=== PATIENT | male | born 1935 | race Caucasian/White ===

== ENCOUNTER 2019-09-28 12:22 | Outpatient (CLI) | payer OTHER, SELFPAY ==
--- NOTE | ~2019-09-28 | XR_ITS ---
EXAMINATION: XR chest 2V EXAM DATE: 09/28/2019 12:46 INDICATION: Short of breath and COPD. TECHNIQUE: Frontal and lateral projections of the chest obtained and reviewed. Comparison is made to prior examination from 07/19/2014. FINDINGS: Some linear left basilar scarring or atelectasis. The lungs are otherwise clear. There ar e no pleural effusions. The cardiomediastinal silhouette is within normal limits. There is no pneum othorax suspected. The bones and soft tissues are unremarkable. IMPRESSION: Linear left basilar subsegmental scarring or atelectasis. Reviewed, dictated and finalized at location B.
== END 2019-09-28 12:23 | disposition home or self-care (01) ==
PROVIDERS: PCP Family Medicine; Visit Provider Physician Assistant
DX: R06.02 Shortness of breath (principal); R09.89 Other specified symptoms and signs involving the circulatory and respiratory systems; R91.8 Other nonspecific abnormal finding of lung field
CPT/HCPCS: 71046

== ENCOUNTER 2020-01-17 11:39 | Emergency (ER) | payer OTHER, SELFPAY ==
--- NOTE | ~2020-01-17 | XR_ITS ---
XR hand LT min 3V 01/17/2020 12:39 Indication: Left hand pain after fall Procedure: 3 views left hand Comparison: No prior studies for comparison. 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 Osteopenia. No acute fracture or traumatic malalignment. No focal soft tissue abnormality. No radiopaque foreign bodies. Impression: 1: No acute fracture. Reviewed, dictated and finalized at location A. Impression: 1: No acute fracture.
--- NOTE | ~2020-01-17 | CT_ITS ---
EXAMINATION: CT cervical spine wo con DATE: 01/17/2020 13:11 INDICATION: Status post fall. Neck pain. TECHNIQUE: Computed tomography (CT) of the cervical spine was performed without intravenous contrast. The dose-length product was 590 mGy-cm. Automated exposure control and iterative reconstruction tech nique were employed. COMPARISON: None FINDINGS: There is reversal of cervical lordosis. There is degenerative anterolisthesis at C3-4 and C 4-5 with retrolisthesis at C5-6 and C6-7. There is complete loss of disc space at C5-6 and C6-7. Ther e is advanced multilevel facet hypertrophy. No evidence for perched facet. Odontoid process within no rmal limits. There is atherosclerosis of the carotid arteries. IMPRESSION: 1. No acute abnormality of the cervical spine. 2: Severe cervical spondylosis Reviewed, dictated and finalized at location A.
--- NOTE | ~2020-01-17 | CT_ITS ---
EXAMINATION: CT brain wo con DATE: 01/17/2020 13:11 INDICATION: Status post fall. Head injury TECHNIQUE: Computed tomography (CT) of the head was performed without intravenous contrast. The dose- length product was 605.33 mGy-cm. The mA was adjusted according to patient size. Iterative reconstruc tion technique was employed. COMPARISON: None FINDINGS: Generalized atrophy. There are scattered moderate periventricular and subcortical white mat ter changes, most likely related to small vessel ischemic disease (microangiopathy). There is intracr anial atherosclerosis. No ventriculomegaly or midline shift. Basilar cisterns are patent. No acute in tracranial hemorrhage, infarction, mass or mass effect. There is mucosal thickening of the ethmoid an d sphenoid sinuses. Small left mastoid effusion. No depressed skull fractures. IMPRESSION: 1. No acute intracranial abnormality. 2: Sinusitis. 3: Chronic age-related findings. Reviewed, dictated and finalized at location A.
--- NOTE | ~2020-01-17 | XR_ITS ---
XR wrist RT min 3V 01/17/2020 12:39 Indication: Right wrist pain after fall Procedure: 4 views right wrist Comparison: No prior studies for comparison. Findings: No acute fracture or traumatic malalignment. Moderate polyarticular osteoarthritis. Osteope emi. No focal soft tissue abnormality. There are vascular calcifications. Impression: 1: No acute fracture. Reviewed, dictated and finalized at location A. Impression: 1: No acute fracture.
[2020-01-17 11:49] VITALS: BP 135/55; PULSE 76; RESP 20; TEMP 36.6; O2SAT 98
--- NOTE | 2020-01-17 12:30 | ED.FALL ---
HPI - Fall General Chief Complaint: Fall Stated Complaint: Fall Time Seen by Provider: 01/17/20 12:02 Source: patient and family Mode of arrival: EMS Limitations: no limitations History of Present Illness HPI Narrative: This is an 84-year-old male that presents to the emergency department via EMS after a fall today. Reports he tripped and fell forward down a couple of stairs. He reports some bruising to the right wrist and left hand. He denies any current pain. He is on a blood thinner so wanted to come be checked out. Denies prodromal symptoms, hitting his head, loss of consciousness, chest pain, shortness of breath, vision changes, vomiting, weakness, or numbness. Related Data Home Medications Medication Instructions Recorded Confirmed albuterol sulfate 90 mcg/actuation 1 inhalation INHALATION Q4H 05/08/19 12/11/19 aerosol inhaler aspirin 81 mg tablet,delayed 81 mg PO DAILY 05/08/19 12/11/19 release nifedipine 30 mg tablet,extended 30 mg PO DAILY 05/08/19 12/11/19 release nifedipine 90 mg tablet,extended 90 mg PO DAILY 09/28/19 12/11/19 release Allergies Allergy/AdvReac Type Severity Reaction Status Date / Time No Known Allergies Allergy Verified 01/17/20 11:53 Review of Systems Review of Systems: Narrative: CONSTITUTIONAL: Denies fever EYES: Denies visual changes CARDIOVASCULAR: Denies chest pain RESPIRATORY: Denies dyspnea. MUSCULOSKELETAL: Denies back pain, joint pain, or myalgia. NEUROLOGIC: Denies headache, numbness, or weakness. 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 Hyp ht/kd NOS I-IV w hf Supplemental oxygen dependent Family History Family History (Updated 09/16/17 @ 08:15 by DOCTOR UNKNOWN) Mother Cerebrovascular accident Family history of diabetes mellitus in first degree relative Diabetes mellitus Sibling Family history of diabetes mellitus in first degree relative Family history of congestive heart failure Other Family history of cardiovascular disease Hypertension Social History Social History (Updated 01/13/20 @ 09:27 by Beatriz Muir) Smoking packs per day: 1 Smoking cigarettes per day: 20.0 Years smoked: 40 Smoking pack-years: 40.00 Smoking status: Former smoker Tobacco type: cigarettes Second hand tobacco smoke exposure: Yes Smoking end date: 04/08/16 Alcohol intake: former Substance use: never Substance use type: does not use Gender identity (if verbalized by the patient): Male Exam Narrative: Exam Narrative: GENERAL: Well-appearing, obese, and in no acute distress. HEAD: Normocephalic, atraumatic. EYES: EOMI. Right pupil is larger than the left and irregular. Patient reports he has had surgery on this eye ENT: Nares clear, no rhinorrhea or epistaxis. Mucous membranes moist. Oropharynx without tonsillar hypertrophy exudate or other lesions. Bilateral TMs pearly bello non-bulging NECK: Supple. No adenopathy or masses. CHEST: No respiratory distress. Scattered wheezes. No rales or rhonchi HEART: Regular rate and rhythm. No murmur heard. Normal peripheral pulses. ABDOMEN: Soft, nontender, nondistended, normal active bowel sounds. EXTREMITIES: Normal range of motion. No edema or obvious deformity. Normal peripheral pulses. Normal sensation. SKIN: Warm, dry, no rash. NEURO: No focal deficits. Alert and oriented x3. Cranial nerves II through XII grossly intact PSYCH: Normal mood and affect Course Vital Signs Vital signs: Vital Signs Temperature 97.8 F 01/17/20 11:49 Pulse Rate 76 01/17/20 11:49 Respiratory Rate 20 01/17/20 11:49 Blood Pressure 135/55 L 01/17/20 11:49 Pulse Oximetry 98 01/17/20 11:49
[2020-01-17] MEDS: ALBUTEROL SULFATE NEB 2.5 MG/0.5 ML INH 5 MG INHALATION (12:41)
[2020-01-17] MEDS: IPRATROPIUM BR 0.02% INH SOLN 0.5 MG/2.5 ML VIAL INHALATION (12:41)
[2020-01-17 12:43] VITALS: PULSE 74; RESP 22
[2020-01-17 12:46] VITALS: BP 162/71; PULSE 73; RESP 20; O2SAT 100
[2020-01-17 12:52] VITALS: PULSE 82; RESP 22
[2020-01-17 14:21] VITALS: BP 128/88; PULSE 72; RESP 20; O2SAT 99
== END 2020-01-17 14:33 | disposition home or self-care (01) ==
PROVIDERS: Emergency Provider Family Medicine; PCP Family Medicine
DX: S60.211A Contusion of right wrist, initial encounter (principal); J44.9 Chronic obstructive pulmonary disease, unspecified; Z87.891 Personal history of nicotine dependence; K21.9 Gastro-esophageal reflux disease without esophagitis; I12.9 Hypertensive chronic kidney disease with stage 1 through stage 4 chronic kidney disease, or unspecified chronic kidney disease; N18.9 Chronic kidney disease, unspecified; Z99.81 Dependence on supplemental oxygen; J32.9 Chronic sinusitis, unspecified; Z79.82 Long term (current) use of aspirin; M47.812 Spondylosis without myelopathy or radiculopathy, cervical region; W10.9XXA Fall (on) (from) unspecified stairs and steps, initial encounter
CPT/HCPCS: 70450; 72125; 73110; 73130; 94640; 99284

== ENCOUNTER 2020-12-06 09:09 | Outpatient (CLI) | payer OTHER, SELFPAY ==
--- NOTE | ~2020-12-06 | US_ITS ---
EXAMINATION: US arterial ankle brachial ind DATE: 12/06/2020 09:55 INDICATION: Personal history of nicotine dependence with additional peripheral vascular disease risk factors of diabetes and hypertension. TECHNIQUE: Segmental pressures and plethysmographic and Doppler waveforms of the brachial and lower e xtremity arteries were obtained. COMPARISON: None. FINDINGS: Right and left brachial artery pressures of 137 mm Hg and 140 mm Hg, respectively, are concordant (no rmal difference <= 30 mmHg). The right ankle-brachial index (MARIANO) is 0.94 (normal >= 0.9-1.0). The right great toe-brachial index (TBI) is 0.76 (normal >= 0.65). Arterial Doppler waveforms are triphasic with brisk systolic upstroke s in both the right posterior tibial and dorsalis pedis arteries. Small amount of atherosclerotic promise que is seen in the right dorsalis pedis artery on grayscale imaging. The left MARIANO is 0.94. The left TBI is 0.74. Arterial Doppler waveforms are biphasic with in the left posterior tibial and triphasic in the left dorsalis pedis arteries, both with brisk systolic upstroke s. IMPRESSION: 1. No significant arterial occlusive disease with normal bilateral ABIs and TBIs. Reviewed, dictated and finalized at location A. IMPRESSION: 1. No significant arterial occlusive disease with normal bilateral ABIs and TBI s.
== END 2020-12-06 09:10 | disposition home or self-care (01) ==
PROVIDERS: PCP Family Medicine; Visit Provider Physician Assistant
DX: I73.9 Peripheral vascular disease, unspecified (principal); E11.22 Type 2 diabetes mellitus with diabetic chronic kidney disease; N18.9 Chronic kidney disease, unspecified; Z87.891 Personal history of nicotine dependence; Z51.81 Encounter for therapeutic drug level monitoring; Z79.4 Long term (current) use of insulin
CPT/HCPCS: 93922

== ENCOUNTER 2022-04-03 11:06 | Observation (INO) | payer OTHER, SELFPAY ==
[2022-04-03] VITALS (34 sets, daily range): BP systolic 105–142; BP diastolic 44–79; PULSE 68–96; RESP 11–25; TEMP 36.6–37.1; O2SAT 90–100; BMI 31.6
--- NOTE | ~2022-04-03 | CT_ITS ---
Non-contrast CT scan of the Abdomen and Pelvis Clinical indication: Abdominal pain Technique: 5 mm axial scans were obtained through the abdomen and pelvis without intravenous or oral contrast. Dose reduction technique was used on this scan by utilizing automated exposure control and iterative reconstruction technique. The dose-length product (DLP) was 1318.25 mGy-cm. Findings: Images through the lung bases reveal no abnormalities. There is no evidence of renal or ureteral calculi. The kidneys and the ureters are nondilated. Liver is enlarged, without definite visible focal mass lesion. Gallbladder not visualized. The spleen , pancreas, and adrenals appear normal. There is extensive atherosclerotic calcification of the abdo troy aorta and iliac vessels. There is no evidence of bowel obstruction. Images through the pelvis were performed. There is no evidence of ascites or lymphadenopathy. Urinary bladder unremarkable. Prostate gland and seminal vesicles are unremarkable. Impression: Hepatomegaly. Correlate with liver function tests and any relevant clinical history. No definite foca l hepatic mass seen. Consider postcontrast CT or MR to better evaluate for infiltrative diseases or s ubtle mass, if clinically indicated. Reviewed, dictated and finalized at location . ICIAN RELATIONS REPRESENTATIVE Impression: Hepatomegaly. Correlate with liver function tests and any relevant clinical his tory. No definite focal hepatic mass seen. Consider postcontrast CT or MR to be tter evaluate for infiltrative diseases or subtle mass, if clinically indicated .
--- NOTE | ~2022-04-03 | XR_ITS ---
Clinical Indication: Cough AP and lateral views of the chest: Comparison: 09/28/2019 Findings: There is possible focal lingular airspace disease. Stable calcified mediastinal and left hi lar lymph nodes are present. Cardiomediastinal silhouette is within normal limits. Bones and soft ti ssues are unremarkable. Impression: Possible lingular atelectasis or pneumonia. Calcified lymph nodes, as above. Reviewed, dictated and finalized at location . OYMENT LAW ATTORNEY Impression: Possible lingular atelectasis or pneumonia. Calcified lymph nodes, as above.
--- NOTE | ~2022-04-03 | NM_ITS ---
Nuclear Medicine Procedure: Hepatobiliary Scan Interpretation: Following intravenous administration of 4.6 mCi. of technetium 99 Choletec, serial im ages were performed for 50 minutes. Patient became agitated after 30 minutes, and terminated the exam at the 15 minute galina. There is probable mild increased background uptake, as well as probable impaired clearance from the l iver. Small bowel is visualized by 50 minutes. Gallbladder not seen at 50 minutes. Impression: Nonvisualization of gallbladder. This is suspicious for cystic duct obstruction, versus the possibili ty of false positive exam related to suspected underlying diffuse hepatocellular dysfunction. Reviewed, dictated and finalized at location . MBLY MACHINE OPERATOR Impression: Nonvisualization of gallbladder. This is suspicious for cystic duct obstruction , versus the possibility of false positive exam related to suspected underlying diffuse hepatocellular dysfunction.
--- NOTE | ~2022-04-03 | US_ITS ---
Limited Abdominal Sonogram: Real-time sonographic imaging of the right upper quadrant was performed. Clinical History: Transaminitis Findings: The liver appears heterogeneous, with no evidence of mass lesion or bile duct dilatation. It measures 20.9 cm in length. Main portal vein demonstrates normal direction of flow. The gallbladde r is contracted, somewhat poorly evaluated. Probable small shadowing gallstone present. The common bi le duct measures 6 mm. The visualized pancreas, aorta, and IVC are unremarkable. Impression: Cholelithiasis. Probable diffuse fatty infiltration of liver with associated hepatomegaly. Correlate for other chroni c liver disease. Reviewed, dictated and finalized at location . MOBILE LIGHTS ASSEMBLER Impression: Cholelithiasis. Probable diffuse fatty infiltration of liver with associated hepatomegaly. José Miguel elate for other chronic liver disease.
--- NOTE | 2022-04-03 11:18 | ECG_ITS ---
Measurements Intervals [place] Rate: 71 P: 79 AK: 299 QRS: -28 QRSD: 118 T: -8 QT: 391 QTc: 425 Interpretive Statements SINUS RHYTHM WITH FIRST DEGREE AV BLOCK WITH OCCASIONAL SUPRAVENTRICULAR PREMATURE COMPLEXES LOW QRS VOLTAGE IN PRECORDIAL LEADS [QRS DEFLECTION < 1.0 mV IN CHEST LEADS] RIGHT BUNDLE-BRANCH BLOCK INFERIOR MYOCARDIAL INFARCTION , PROBABLY OLD MODERATE T-WAVE ABNORMALITY, CONSIDER ANTERIOR ISCHEMIA ABNORMAL ECG NO PREVIOUS ECG AVAILABLE FOR COMPARISON Electronically Signed On 04-03-2022 17:58:06 RESIDENT ASSISTANT by Santiago Fabian M.D.
[2022-04-03 12:12] LABS: Basophils Percent Auto 0.1 % (0.2-1.2); Eosinophils Absolute Auto 0.1 K/mm3 (0-0.3); Eosinophils Percent Auto 0.5 % (0-4.4); Hematocrit 31.6 % (42.0-52.0); Hemoglobin 9.7 g/dL (14.0-18.0); Immature Granulocyte Absolute 0.05 K/mm3 (0.00-0.031); Immature Granulocyte Percent A 0.5 % (0-0.5); Lymphocytes Absolute Auto 1.77 K/mm3 (0.9-3.2); Lymphocytes Percent Auto 18.1 % (18.3-44.2); Mean Corpuscular HGB Conc 30.7 g/dl (32-36); Mean Corpuscular Volume 91.1 fl (80-100); Mean Platelet Volume 9.9 fl (7.4-10.4); Monocytes Absolute Auto 0.7 K/mm3 (0.1-0.6); Monocytes Percent Auto 7.3 % (2.6-8.5); Neutrophils Absolute Auto 7.2 K/mm3 (1.3-6.7); Neutrophils Percent Auto 73.5 % (45.5-73.1); Platelet Count Result 282 k/mm3 (150-375); Red Blood Count 3.47 M/mm3 (4.6-6.20); White Blood Count 9.8 K/mm3 (4.5-10.0)
[2022-04-03 12:20] LABS: Alanine Aminotransferase 54 U/L (6-50); Albumin Level 3.6 g/dL (3.5-5.1); Alkaline Phosphatase 189 U/L (38-126); Anion Gap 1 mmol/L (8-16); Aspartate Amino Transferase 264 U/L (17-59); Bilirubin,Total 0.5 mg/dL (0.2-1.3); Blood Urea Nitrogen 47 mg/dL (9-20); Calcium 10.1 mg/dL (8.4-10.2); Carbon Dioxide 38 mmol/L (22-30); Chloride 95 mmol/L (98-107); Estimated CRCL calculation 30 ml/min; Estimated Glomerular Filt Rate 36; Glucose 88 mg/dL (65-110); Lipase 138 U/L (23-300); Potassium 4.3 mmol/L (3.4-5.0); Sodium 134 mmol/L (137-145)
--- NOTE | 2022-04-03 13:07 | PC.NURSE ---
Patient unable to urinate and is refusing catheter for urine specimen.
[2022-04-03 13:12] LABS: NT Pro B Type Natriuretic Pept 6360 pg/mL (5-100)
[2022-04-03 13:50] LABS: Influenza A QL RT-PCR Negative (Negative); Influenza B QL RT-PCR Negative (Negative); SARS-CoV-2 RNA PCR Negative
--- NOTE | 2022-04-03 13:58 | ED.GENADULT ---
HPI - General Adult General Chief complaint: Abdominal Pain Stated complaint: ABD pain Time Seen by Provider: 04/03/22 11:23 Source: patient and family Mode of arrival: EMS Limitations: physical limitation (very hard of hearing) History of Present Illness HPI narrative: 86-year-old with a history of hypertension, diabetes, COPD usually on 3 L of oxygen however for the past few weeks his has increased it to 5 L. Patient complaining of shortness of breath, marked weakness, unable to walk, loss of appetite and abdominal pain for past 1 week. Patient's states that he is unable to stand even. Patient however denies any chest pain. Complains of pain from his upper abdomen to lower abdomen soon after he eats. He denies any urinary symptoms. Onset (ago): week(s) (1) Pain Consistency: constant Relieving factors: none Associated symptoms: denies other symptoms Related Data Allergies Allergy/AdvReac Type Severity Reaction Status Date / Time No Known Allergies Allergy Verified 11/21/21 09:46 Review of Systems Review of Systems: All systems reviewed & are unremarkable except as noted in HPI and below Constitutional: Constitutional: Reports no additional constitutional complaints Eyes: Eyes: Reports no additional eye complaints ENT: Reports system reviewed and no additional complaints, except as documented Cardiovascular: Cardiovascular: Reports no additional cardiovascular complaints Respiratory: Respiratory: Reports no additional respiratory complaints Gastrointestinal: Gastrointestinal: Reports no additional gastrointestinal complaints Musculoskeletal: Musculoskeletal: Reports no additional musculoskeletal complaints Neurologic: Reports system reviewed and no additional complaints, except as documented [facility] Past Medical History Medical History COPD exacerbation Essential hypertension Former smoker Gastro-esophageal reflux disease without esophagitis 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 Hyp ht/kd NOS I-IV w hf Supplemental oxygen dependent Family History Family History Mother Cerebrovascular accident Family history of diabetes mellitus in first degree relative Diabetes mellitus Sibling Family history of diabetes mellitus in first degree relative Family history of congestive heart failure Other Family history of cardiovascular disease Hypertension Social History Social History Smoking packs per day: 1 Smoking cigarettes per day: 20.0 Years smoked: 40 Smoking pack-years: 40.00 Smoking status: Former smoker Tobacco type: cigarettes Second hand tobacco smoke exposure: Yes Smoking end date: 04/08/16 Alcohol intake: former Substance use: never Substance use type: does not use Gender identity (if verbalized by the patient): Male Exam Narrative: GENERAL: ill -appearing, well-nourished, and in no acute distress. HEAD: Normocephalic, atraumatic. EYES: PERRLA and EOMI. NECK: Supple. CHEST: Distant breath sounds, mild wheeze bilaterally HEART: Regular rate and rhythm. No murmur heard. Normal peripheral pulses. ABDOMEN: Soft, nontender, nondistended, normal active bowel sounds. EXTREMITIES: Normal range of motion. No edema. SKIN: Warm, dry, no rash. NEURO: No focal deficits. Alert and oriented x3. PSYCH: Normal mood and affect. Course Course Emergency Course: 86-year-old with a history of multiple medical problems here with mostly shortness of breath and abdominal pain after eating. He is physical exam he is ill-appearing. Chest x-ray did not show any much of pneumonia or CHF. However he is extremely weak we will admit him to the hospital for COPD exacerbation. I discussed labs, CT and x-ray findings with the patient and his prefer him to be admitted Vital Signs Vital signs: Vital
[2022-04-03 14:52] LABS: Add Urine Microscopic? YES; Appearance Urine Clear (Clear); Bilirubin Urine Negative (Negative); Blood Urine Negative (Negative); Color Urine Light Yellow (Yellow); Glucose Urine UA Negative (Negative); Ketones Urine Trace mg/dL (Negative); Leukocyte Esterase Ur Trace LEU/UL (Negative); Nitrate Urine Negative (Negative); Protein Urine Trace mg/dL (Negative); Urobilinogen Urine 0.2 mg/dL (<2.0)
[2022-04-03 14:59] LABS: Mucus Urine Rare /lpf; Squamous Epithelial Cell Urine Rare /hpf (Few); WBC Urine 0-3 /hpf
--- NOTE | 2022-04-03 16:20 | ADMGEN ---
This patient, Chandler Garzon, was admitted to Medical Room 245-. Patient/family oriented to hospital policies and general routines including ID bracelet, bed and alarms, visiting hours, pain management, procedures, bathroom and other care routines, personal items, smoking policy, room service/diet, and visiting hours. Information on how to activate the Rapid Response Team has been discussed. Patient/Family are encouraged to report perceived risks to care and to ask questions if they do not understand what they are told or what they should do.
[2022-04-03 17:01] LABS: Glucose Point of Care 82 mg/dl (65-105)
[2022-04-03] MEDS: IPRATROPIUM BR 0.02% INH SOLN 0.5 MG/2.5 ML VIAL INHALATION (20:50)
[2022-04-03] MEDS: ALBUTEROL SULFATE NEB 2.5 MG/3 ML INH 5 MG INHALATION (20:50)
--- NOTE | 2022-04-03 22:20 | PM.IMHP ---
H&P: HPI History of Present Illness Date/Time: 04/03/22 22:20 Chief Complaint: Poor appetite and abdominal pain. Narrative: This is a nice 86-year-old male with multiple medical problems including coronary artery disease, heart failure with preserved ejection fraction, hypertension, chronic kidney disease, COPD on oxygen, type 2 diabetes mellitus, and other comorbidities who presented to the emergency department via EMS from home for evaluation of poor appetite and abdominal pain. He has not been feeling well for upwards of a week with generalized malaise, poor appetite, nausea, and diffuse but vague abdominal discomfort. He has become increasingly weak over the last several days and is my understanding that he has had several falls. Patient denies loss of consciousness and injury with those falls. He has not had any sick contacts to his knowledge. He denies recent travel. He has not had a fever to his knowledge. No significant headache, sinus congestion, sore throat, or cough. He denies vomiting, diarrhea, and dysuria to me. He was afebrile on arrival to the emergency department and vital signs have been stable. Labs showed stable kidney disease and anemia. AST, ALT, and alkaline phosphatase were all elevated. Acetaminophen level was undetectable. He was negative for influenza and COVID. CT of the abdomen pelvis showed hepatomegaly without definite visible focal mass lesion. He is being admitted in this setting for further evaluation and supportive care. At the time my evaluation he is resting and reports that his abdomen feels a bit better. He has no other complaints. Review of Systems Review of Systems: Twelve systems were reviewed and are negative except for as per HPI. [facility] Past Medical History Medical History (Updated 04/04/22 @ 00:48 by Angelica Waldron PA-C) Arthritis Benign prostatic hyperplasia Chronic anemia Iron and B12 deficiency followed by Dr. Chaparro. Chronic kidney disease, stage 3 Chronic obstructive pulmonary disease Chronic respiratory failure with hypoxia, on home oxygen therapy Congestive heart failure Depression Essential hypertension Former smoker Gastroesophageal reflux disease Hearing loss Heart failure with preserved ejection fraction Psoriasis Seizure Type 2 diabetes mellitus Surgical History Surgical History (Updated 04/03/22 @ 22:24 by Angelica Waldron PA-C) History of cardiac catheterization History of circumcision History of coronary artery stent placement History of left inguinal hernia repair History of repair of right rotator cuff Family History Family History Mother Cerebrovascular accident Family history of diabetes mellitus in first degree relative Diabetes mellitus Sibling Family history of diabetes mellitus in first degree relative Family history of congestive heart failure Other Family history of cardiovascular disease Hypertension Social History Social History (Updated 04/04/22 @ 00:45 by Angelica Waldron PA-C) Social History: Surrogate medical decision maker: Jeronimo Garzon Code status: Full code. Smoking packs per day: 1 Smoking cigarettes per day: 20.0 Years smoked: 40 Smoking pack-years: 40.00 Smoking status: Former smoker Tobacco type: cigarettes Second hand tobacco smoke exposure: Yes Smoking end date: 04/08/16 Alcohol intake: former Substance use: never Substance use type: does not use Lack of Transportation: YES Lack of Food: Never True Current Housing: I Have Housing Concerned About Future Housing: No Difficulty Paying Gas/Electric Bills: No Difficulty Paying for Meds: No Currently Unemployed: No Education: Grade School Difficulty w/ Childcare or Family Care: No Additional living arrangements comments: Lives in [place] with spouse. Spiritual care concerns: No Meds Home Medications and Allergies Home Medications Medicatio
[2022-04-03] MEDS: TOLNAFTATE 1% POWDER 45 GM BTL 1 APPLIC TOPICAL (22:45)
[2022-04-03 23:53] LABS: INR 1.2
[2022-04-03 23:54] LABS: Partial Thromboplastin Time 26.5 SECONDS (22.3-36.8)
[2022-04-03 23:56] LABS: Acetaminophen < 10 ug/mL (10-30); Ammonia 14 umol/L (9-30)
[2022-04-03 23:57] LABS: Hemoglobin A1C 5.7 % (<5.7)
[2022-04-04] VITALS (22 sets, daily range): BP systolic 87–135; BP diastolic 40–99; PULSE 69–89; RESP 15–20; TEMP 36.4–36.8; O2SAT 91–96; BMI 31.1
[2022-04-04] LABS: CRP 1.7 mg/dL (<1.0); Magnesium 2.1 mg/dL (1.6-2.3)
[2022-04-04] MEDS: ALBUTEROL SULFATE NEB 2.5 MG/3 ML INH 5 MG INHALATION ×3 (01:51→14:28)
[2022-04-04] MEDS: IPRATROPIUM BR 0.02% INH SOLN 0.5 MG/2.5 ML VIAL INHALATION ×3 (01:51→14:28)
[2022-04-04 06:07] LABS: Alanine Aminotransferase 55 U/L (6-50); Albumin Level 3.3 g/dL (3.5-5.1); Alkaline Phosphatase 191 U/L (38-126); Anion Gap 5 mmol/L (8-16); Aspartate Amino Transferase 291 U/L (17-59); Bilirubin,Total 0.5 mg/dL (0.2-1.3); Blood Urea Nitrogen 43 mg/dL (9-20); Calcium 9.7 mg/dL (8.4-10.2); Carbon Dioxide 33 mmol/L (22-30); Chloride 96 mmol/L (98-107); Creatine Kinase 134 U/L (55-170); Estimated CRCL calculation 31 ml/min; Estimated Glomerular Filt Rate 36; Glucose 82 mg/dL (65-110); Potassium 3.8 mmol/L (3.4-5.0); Sodium 134 mmol/L (137-145)
[2022-04-04 08:00] LABS: Glucose Point of Care 91 mg/dl (65-105)
[2022-04-04] MEDS: FLUTICASONE/SALMETEROL 115-21 MCG INHALER 1 PUFF 2 PUFF INHALATION ×2 (08:13→20:55)
[2022-04-04] MEDS: CITALOPRAM HYDROBROMIDE 20 MG TABLET 40 MG PO (09:16)
[2022-04-04] MEDS: carvediloL 25 MG TABLET PO ×2 (09:16→17:32)
[2022-04-04] MEDS: LOSARTAN POTASSIUM 100 MG TABLET PO (09:16)
[2022-04-04] MEDS: POTASSIUM CHLORIDE 20 MEQ TABLET PO (09:17)
[2022-04-04] MEDS: CLOPIDOGREL BISULFATE 75 MG TABLET PO (09:17)
[2022-04-04] MEDS: TAMSULOSIN HCL 0.4 MG CAPSULE PO (09:17)
[2022-04-04] MEDS: MULTIVIT/MIN/PREN/FOL AC/IRON TABLET 1 TAB PO (09:17)
[2022-04-04] MEDS: EMPAGLIFLOZIN 10 MG TABLET BY MOUTH (09:17)
[2022-04-04] MEDS: TOLNAFTATE 1% POWDER 45 GM BTL 1 APPLIC TOPICAL ×2 (09:18→20:38)
[2022-04-04 10:18] LABS: Hepatitis B Surface Antigen Negative (Negative)
[2022-04-04 10:24] LABS: HAV RESULT Negative (Negative); Hepatitis B Core IgM Result Negative (Negative)
[2022-04-04 10:36] LABS: Hepatitis C Virus Antibody Negative (Negative)
[2022-04-04 12:22] LABS: Glucose Point of Care 107 mg/dl (65-105)
--- NOTE | 2022-04-04 15:56 | WPDGICN ---
Assessment and Plan Assessment and plan (1) Nausea with vomiting, unspecified: Code(s): R11.2 - Nausea with vomiting, unspecified Status: Acute Assessment and Plan: could be gastroenteritis/viral infection, will get stool studies (here with nausea, diarrhea and noted elevated liver enzymes but normal bili and also normal bile duct size) monitor and antiemetics prn (2) Abdominal pain: Code(s): R10.9 - Unspecified abdominal pain Status: Acute Assessment and Plan: monitor supportive care (3) Transaminitis: Code(s): R74.01 - Elevation of levels of liver transaminase levels Status: Acute Assessment and Plan: will trend liver enzymes, CK normal (he has been falling) if persistent elevated consider to get MRCP (4) Generalized weakness: Code(s): R53.1 - Weakness Status: Acute (5) Chronic kidney disease, stage 3: Code(s): N18.30 - Chronic kidney disease, stage 3 unspecified Status: Acute (6) Type 2 diabetes mellitus with chronic kidney disease, with long-term current use of insulin: Code(s): E11.22 - Type 2 diabetes mellitus with diabetic chronic kidney disease; Z79.4 - longterm (current) use of insulin Status: Acute GI Consult Note Consult date/time: 04/04/22 15:56 Reason for consult: abdominal pain, elevated liver enzymes HPI: Chandler Garzon is a 86 year old male with history of coronary artery disease, heart failure with preserved ejection fraction, hypertension, chronic kidney disease, COPD on oxygen, type 2 diabetes mellitus who came to the emergency department via EMS from home for evaluation of poor appetite and abdominal pain taht has been going on for 4-5 days, also nausea and vomiting few times, is at bedside and says that has been having diarrhea. No fever, no sick contacts, no recent alcohol intake, no history of liver disease. He has not been feeling well and he is a relatively poor historian, apparently has been feeling weaker and had several falls.?Blood work showed elevated transaminases 200, normal bili, Acetaminophen level was undetectable. He was negative for influenza and COVID. CT of the abdomen pelvis showed hepatomegaly without definite visible focal mass lesion. Ultrasound pending. Hepatitis panel negative. [facility] Past Medical History Medical History (Updated 04/04/22 @ 16:01 by Fco Carter MD) Arthritis Benign prostatic hyperplasia Chronic anemia Iron and B12 deficiency followed by Dr. Chaparro. Chronic kidney disease, stage 3 Chronic obstructive pulmonary disease Chronic respiratory failure with hypoxia, on home oxygen therapy Congestive heart failure Depression Essential hypertension Former smoker Gastroesophageal reflux disease Hearing loss Heart failure with preserved ejection fraction Nausea with vomiting, unspecified Psoriasis Seizure Type 2 diabetes mellitus Surgical History Surgical History (Updated 04/03/22 @ 22:24 by Angelica Waldron PA-C) History of cardiac catheterization History of circumcision History of coronary artery stent placement History of left inguinal hernia repair History of repair of right rotator cuff Family History Family History Mother Cerebrovascular accident Family history of diabetes mellitus in first degree relative Diabetes mellitus Sibling Family history of diabetes mellitus in first degree relative Family history of congestive heart failure Other Family history of cardiovascular disease Hypertension Social History Social History (Updated 04/04/22 @ 00:45 by Angelica Waldron PA-C) Social History: Surrogate medical decision maker: Jeronimo Garzon Code status: Full code. Smoking packs per day: 1 Smoking cigarettes per day: 20.0 Years smoked: 40 Smoking pack-years: 40.00 Smoking status: Former smoker Tobacco type: cigarettes Second hand tobacco smoke
--- NOTE | 2022-04-04 16:27 | PM.IMPN ---
Progress Note: A&P Assessment and Plan (1) Abdominal pain: Qualifiers: Abdominal location: right upper quadrant Qualified Code(s): R10.11 - Right upper quadrant pain Code(s): R10.9 - Unspecified abdominal pain Status: Acute Assessment and Plan: Patient presented to the ED with c/o abdominal pain. LFTs noted to be elevated. CT Abd/pelvis demonstrates heptomegaly. GI consulted and appreciate recommendations. Abd US demonstrates diffuse fatty infiltrates and cholelithiasis Continue analgesics PRN (2) Transaminitis: Code(s): R74.01 - Elevation of levels of liver transaminase levels Status: Acute Assessment and Plan: LFTs elevated on admission as above. 04/04/22 AST 291, ALT 55, Alk Phos 191, Tbili 0.5 - slightly increased from yesterday. Mild RUQ pain on exam. Trend LFTs and management as above. Hepatitis panel negative Avoid hepatotoxic medications. (3) Generalized weakness: Code(s): R53.1 - Weakness Status: Acute Assessment and Plan: Secondary to anorexia, acute abd pain, weight loss. Consult PT/OT TSH within normal limits Check B12 and folate BUN/creatinine at baseline. (4) Chronic respiratory failure with hypoxia, on home oxygen therapy: Code(s): J96.11 - Chronic respiratory failure with hypoxia; Z99.81 - Dependence on supplemental oxygen Status: Chronic Assessment and Plan: H/O COPD on chronic home O2, does not appear in acute exacerbation CXR with atelectasis Continue Advair and PRN albuterol (5) Type 2 diabetes mellitus: Qualifiers: Diabetes mellitus senior living insulin use: without bed bug exterminator use Diabetes mellitus complication status: without complication Qualified Code(s): E11.9 - Type 2 diabetes mellitus without complications Code(s): E11.9 - Type 2 diabetes mellitus without complications Status: Chronic Assessment and Plan: Chronic, stable. Non-insulin dependent diabetes A1c 5.5% Accu-checks AC/HS with sliding scale insulin Hold metformin while inpatient Continue Jardiance (6) Chronic anemia: Code(s): D64.9 - Anemia, unspecified Status: Chronic Assessment and Plan: Chronic, stable. Check B12/folate and iron panel. (7) Chronic kidney disease, stage 3: Qualifiers: Chronic kidney disease stage 3 subtype: stage 3b (GFR 30-44) Qualified Code(s): N18.32 - Chronic kidney disease, stage 3b Code(s): N18.30 - Chronic kidney disease, stage 3 unspecified Status: Chronic Assessment and Plan: Chronic, appears at baseline Monitor renal function UA with trace protein Continue glucose and BP control. Avoid nephrotoxic agents (8) Essential hypertension: Code(s): I10 - Essential (primary) hypertension Status: Chronic Assessment and Plan: Chronic, blood pressures reviewed and stable. Continue coreg and losartan at home doses (9) Heart failure with preserved ejection fraction: Qualifiers: Heart failure chronicity: chronic Qualified Code(s): I50.32 - Chronic diastolic (congestive) heart failure Code(s): I50.30 - Unspecified diastolic (congestive) heart failure Status: Chronic Assessment and Plan: chronic, does not appear in acute exacerbation. Continue losartan, coreg. Monitor I/O and daily weights. Time Spent With Patient Time with patient: 25 - 35 minutes Subjective Date/time seen: 04/04/22 16:27 Patient found lying in bed with at bedside. He denies c/o abd pain, N/V/D, chest pain, SOB or dizziness. His reports he has had anorexia and weight loss of approximately 30 lbs in 6 months. Review of Systems Review of Systems: All systems reviewed & are unremarkable except as noted in HPI and below Exam Narrative: General: Chronically ill-appearing gentleman lying in bed. No acute distress. HEENT: Normocephalic, atraumatic. hard of hearing
[2022-04-04 16:59] LABS: Glucose Point of Care 89 mg/dl (65-105)
[2022-04-05] VITALS (20 sets, daily range): BP systolic 113–145; BP diastolic 44–78; PULSE 70–90; RESP 18–22; TEMP 36.3–36.8; O2SAT 87–96
[2022-04-05 00:25] LABS: Glucose Point of Care 96 mg/dl (65-105)
[2022-04-05 05:56] LABS: Hematocrit 31.4 % (42.0-52.0); Hemoglobin 9.6 g/dL (14.0-18.0); Mean Corpuscular HGB Conc 30.6 g/dl (32-36); Mean Corpuscular Hemoglobin 27.4 pg (26-34); Mean Corpuscular Volume 89.7 fl (80-100); Mean Platelet Volume 10.2 fl (7.4-10.4); Platelet Count Result 266 k/mm3 (150-375); Red Cell Distribution Width 15.5 % (11.5-14.5); White Blood Count 9.2 K/mm3 (4.5-10.0)
[2022-04-05 06:03] LABS: Alanine Aminotransferase 57 U/L (6-50); Albumin Level 3.3 g/dL (3.5-5.1); Alkaline Phosphatase 193 U/L (38-126); Anion Gap 5 mmol/L (8-16); Aspartate Amino Transferase 266 U/L (17-59); Bilirubin,Total 0.6 mg/dL (0.2-1.3); Blood Urea Nitrogen 39 mg/dL (9-20); Calcium 9.4 mg/dL (8.4-10.2); Carbon Dioxide 34 mmol/L (22-30); Chloride 97 mmol/L (98-107); Estimated CRCL calculation 39 ml/min; Estimated Glomerular Filt Rate 48; Glucose 102 mg/dL (65-110); Potassium 3.8 mmol/L (3.4-5.0); Sodium 136 mmol/L (137-145)
[2022-04-05 06:17] LABS: Iron 23 ug/dL (49-181)
[2022-04-05 06:27] LABS: Percent Iron Saturation 9 % (20-50)
[2022-04-05 07:10] LABS: Folic Acid 19.8 ng/mL (2.76->20); Vitamin B12 > 1000.0 pg/mL (239-931)
[2022-04-05 08:56] LABS: Glucose Point of Care 118 mg/dl (65-105)
[2022-04-05] MEDS: FLUTICASONE/SALMETEROL 115-21 MCG INHALER 1 PUFF 2 PUFF INHALATION ×2 (09:16→21:27)
[2022-04-05] MEDS: LOSARTAN POTASSIUM 100 MG TABLET PO (09:55)
[2022-04-05] MEDS: EMPAGLIFLOZIN 10 MG TABLET BY MOUTH (09:55)
[2022-04-05] MEDS: carvediloL 25 MG TABLET PO ×2 (09:55→16:50)
[2022-04-05] MEDS: CITALOPRAM HYDROBROMIDE 20 MG TABLET 40 MG PO (09:56)
[2022-04-05] MEDS: POTASSIUM CHLORIDE 20 MEQ TABLET PO (09:57)
[2022-04-05] MEDS: MULTIVIT/MIN/PREN/FOL AC/IRON TABLET 1 TAB PO (09:57)
[2022-04-05] MEDS: TOLNAFTATE 1% POWDER 45 GM BTL 1 APPLIC TOPICAL ×2 (09:57→21:00)
[2022-04-05] MEDS: TAMSULOSIN HCL 0.4 MG CAPSULE PO (09:57)
[2022-04-05] MEDS: CLOPIDOGREL BISULFATE 75 MG TABLET PO (09:57)
[2022-04-05 12:26] LABS: Glucose Point of Care 118 mg/dl (65-105)
--- NOTE | 2022-04-05 13:24 | PM.IMPN ---
Progress Note: A&P Assessment and Plan (1) Abdominal pain: Qualifiers: Abdominal location: right upper quadrant Qualified Code(s): R10.11 - Right upper quadrant pain Code(s): R10.9 - Unspecified abdominal pain Status: Acute Assessment and Plan: Patient presented to the ED with c/o abdominal pain. LFTs noted to be elevated. CT Abd/pelvis demonstrates heptomegaly. GI consulted and appreciate recommendations. Abd US demonstrates diffuse fatty infiltrates and cholelithiasis Continue analgesics PRN (2) Transaminitis: Code(s): R74.01 - Elevation of levels of liver transaminase levels Status: Acute Assessment and Plan: LFTs elevated on admission as above. 04/04/22 AST 291, ALT 55, Alk Phos 191, Tbili 0.5 - slightly increased from yesterday. Mild RUQ pain on exam. Trend LFTs and management as above. Hepatitis panel negative Avoid hepatotoxic medications. 04/05 - minimally changed LFTs. appreciate GI recommendations. (3) Generalized weakness: Code(s): R53.1 - Weakness Status: Acute Assessment and Plan: Secondary to anorexia, acute abd pain, weight loss. Consult PT/OT TSH within normal limits B12 and folate within normal limits BUN/creatinine at baseline. (4) Chronic respiratory failure with hypoxia, on home oxygen therapy: Code(s): J96.11 - Chronic respiratory failure with hypoxia; Z99.81 - Dependence on supplemental oxygen Status: Chronic Assessment and Plan: H/O COPD on chronic home O2, does not appear in acute exacerbation CXR with atelectasis Continue Advair. Add scheduled duonebs Q4 hours (5) Type 2 diabetes mellitus: Qualifiers: Diabetes mellitus complication status: without complication Diabetes mellitus bed bug exterminator insulin use: without jail use Qualified Code(s): E11.9 - Type 2 diabetes mellitus without complications Code(s): E11.9 - Type 2 diabetes mellitus without complications Status: Chronic Assessment and Plan: Chronic, stable. Non-insulin dependent diabetes A1c 5.5% Accu-checks AC/HS with sliding scale insulin Hold metformin while inpatient Continue Jardiance (6) Chronic anemia: Code(s): D64.9 - Anemia, unspecified Status: Chronic Assessment and Plan: Chronic, stable. H/H 9.6/31% appears at baseline B12/folate within normal limits iron panel- serum iron 23, TIBC 262, saturation 9% (7) Chronic kidney disease, stage 3: Qualifiers: Chronic kidney disease stage 3 subtype: stage 3b (GFR 30-44) Qualified Code(s): N18.32 - Chronic kidney disease, stage 3b Code(s): N18.30 - Chronic kidney disease, stage 3 unspecified Status: Chronic Assessment and Plan: Chronic, appears at baseline Monitor renal function UA with trace protein Continue glucose and BP control. Avoid nephrotoxic agents Stable. (8) Essential hypertension: Code(s): I10 - Essential (primary) hypertension Status: Chronic Assessment and Plan: Chronic, blood pressures reviewed and stable. Continue coreg and losartan at home doses (9) Heart failure with preserved ejection fraction: Qualifiers: Heart failure chronicity: chronic Qualified Code(s): I50.32 - Chronic diastolic (congestive) heart failure Code(s): I50.30 - Unspecified diastolic (congestive) heart failure Status: Chronic Assessment and Plan: chronic, does not appear in acute exacerbation. Continue losartan, coreg. Monitor I/O and daily weights. Resume furosemide PO at 40 mg daily with supplemental KCl Time Spent With Patient Time with patient: 15 - 25 minutes Subjective Date/time seen: 04/05/22 13:24 Patient is sleeping. His reports that he had some vomiting with breakfast this morning, however, the nurse states that he had a coughing fit. He denies nausea and vomiting. No chest pain, sputum or palpitations. R
--- NOTE | 2022-04-05 14:23 | WPDGIPROGNO ---
Progress Note: A&P Assessment and Plan (1) Abdominal pain: Qualifiers: Abdominal location: right upper quadrant Qualified Code(s): R10.11 - Right upper quadrant pain Code(s): R10.9 - Unspecified abdominal pain Status: Acute Assessment and Plan: Abdominal pain appears located primarily in the right upper quadrant. Given the finding of gallstones. Also with elevated LFTs would recommend HIDA scan to exclude symptomatic cholelithiasis. Continue to monitor LFTs conservatively at this time. Patient has exacerbation of COPD is somewhat short of breath exam and would be high risk for invasive testing this time. (2) Nausea with vomiting, unspecified: Code(s): R11.2 - Nausea with vomiting, unspecified Status: Acute (3) Transaminitis: Code(s): R74.01 - Elevation of levels of liver transaminase levels Status: Acute (4) Gallstones: Code(s): K80.20 - Calculus of gallbladder without cholecystitis without obstruction Status: Acute (5) Congestive heart failure: Code(s): I50.9 - Heart failure, unspecified Status: Acute (6) COPD exacerbation: Code(s): J44.1 - Chronic obstructive pulmonary disease with (acute) exacerbation Status: Acute Subjective Date/time seen: 04/05/22 14:23 Patient continues to complain of intermittent pain in the right upper side of his abdomen. He remained short of breath at rest. He states his abdominal pain has improved since yesterday. He does have an underlying history of COPD, diabetes, obesity, heart failure, coronary artery disease. CT scan reveals hepatomegaly without definite focal mass lesion. gallstones were identified. Review of Systems Review of Systems: Review of systems noncontributory. Exam Narrative: Review physical exam reveals patient be alert. Somewhat short of breath lying at rest. HEENT exam reveals no icterus. Lungs reveal scattered rhonchi. Heart without murmur. Abdomen is obese. On physical exam patient has hepatomegaly with a liver 3 finger breaths below the right costal margin. Objective Data Vital Signs Vital Signs: Vital Signs - 24 hr 04/04/22 14:28 04/04/22 14:53 04/04/22 17:32 Temperature Pulse Rate 89 88 75 Respiratory Rate 16 15 Blood Pressure Pulse Oximetry Oxygen Delivery 04/04/22 14:49 04/04/22 16:00 04/04/22 20:00 Temperature 97.7 F 97.7 F Pulse Rate 79 74 69 Respiratory Rate 17 18 Blood Pressure 120/58 L 121/40 L Pulse Oximetry 91 91 Oxygen Delivery 04/04/22 19:50 04/04/22 19:53 04/04/22 19:56 Temperature 97.7 F 97.5 F L 97.5 F L Pulse Rate 69 72 69 Respiratory Rate 18 20 20 Blood Pressure 121/40 L 87/69 L 135/99 H Pulse Oximetry 91 94 95 Oxygen Delivery 04/04/22 20:59 04/04/22 23:26 04/04/22 20:00 Temperature 98.1 F Pulse Rate 71 72 Respiratory Rate 18 Blood Pressure 133/43 L Pulse Oximetry 92 91 Oxygen Delivery Room Air 04/05/22 00:00 04/05/22 03:44 04/05/22 05:20 Temperature 97.8 F Pulse Rate 71 77 77 Respiratory Rate 18 Blood Pressure 136/48 L Pulse Oximetry 92 Oxygen Delivery 04/05/22 09:55 04/05/22 10:20 04/05/22 11:35 Temperature Pulse Rate 85 90 Respiratory Rate 20 Blood Pressure Pulse Oximetry 90 Oxygen Delivery Room Air Intake/Output Intake/Output: Intake & Output 04/02/22 04/03/22 04/04/22 04/05/22 23:59 23:59 23:59 23:59 Intake Total 360 1300 878 Output Total 75 Balance 285 1300 878 Meds/Results Medications: Active Medications Generic Name Dose Route Start Last Admin Trade Name Freq PRN Reason Stop Dose Admin Acetaminophen 650 mg 04/03/22 14:08 Acetaminophen 325 Mg Tablet PO Q4H PRN Mild Pain (1-3) or Fever Hydrocodone Bitart/Acetaminophen 1 tab 04/04/22 00:53 Hydrocodone/Acetaminophen (*Crx) 7.5-325 Mg Tablet PO Q6H PRN Pain Rated 4-6 Albuterol 2 puff 04/04/22 00:53 Albutero
[2022-04-05] MEDS: FUROSEMIDE 40 MG TABLET PO (14:32)
[2022-04-05] MEDS: ALBUTEROL SULFATE NEB 2.5 MG/3 ML INH INHALATION ×2 (16:35→21:23)
[2022-04-05] MEDS: IPRATROPIUM BR 0.02% INH SOLN 0.5 MG/2.5 ML VIAL INHALATION ×2 (16:35→21:22)
[2022-04-05 16:43] LABS: Glucose Point of Care 131 mg/dl (65-105)
[2022-04-05 20:54] LABS: Glucose Point of Care 130 mg/dl (65-105)
[2022-04-05] MEDS: SENNA/DOCUSATE SODIUM TABLET 1 TAB PO (21:00)
[2022-04-06] VITALS (23 sets, daily range): BP systolic 111–1198; BP diastolic 37–96; PULSE 52–82; RESP 18–20; TEMP 36.1–36.9; O2SAT 91–96
[2022-04-06] MEDS: ALBUTEROL SULFATE NEB 2.5 MG/3 ML INH INHALATION ×6 (00:10→19:58)
[2022-04-06] MEDS: IPRATROPIUM BR 0.02% INH SOLN 0.5 MG/2.5 ML VIAL INHALATION ×6 (00:10→19:58)
[2022-04-06 05:51] LABS: Hematocrit 31.4 % (42.0-52.0); Hemoglobin 9.7 g/dL (14.0-18.0); Mean Corpuscular HGB Conc 30.9 g/dl (32-36); Mean Corpuscular Hemoglobin 27.6 pg (26-34); Mean Corpuscular Volume 89.5 fl (80-100); Mean Platelet Volume 10.4 fl (7.4-10.4); Platelet Count Result 268 k/mm3 (150-375); Red Blood Count 3.51 M/mm3 (4.6-6.20); Red Cell Distribution Width 15.8 % (11.5-14.5); White Blood Count 9.2 K/mm3 (4.5-10.0)
[2022-04-06 06:08] LABS: Alanine Aminotransferase 58 U/L (6-50); Albumin Level 3.1 g/dL (3.5-5.1); Alkaline Phosphatase 187 U/L (38-126); Anion Gap 3 mmol/L (8-16); Aspartate Amino Transferase 230 U/L (17-59); Bilirubin,Total 0.5 mg/dL (0.2-1.3); Blood Urea Nitrogen 32 mg/dL (9-20); Calcium 9.5 mg/dL (8.4-10.2); Carbon Dioxide 33 mmol/L (22-30); Chloride 98 mmol/L (98-107); Estimated CRCL calculation 37 ml/min; Estimated Glomerular Filt Rate 45; Glucose 107 mg/dL (65-110); Potassium 3.7 mmol/L (3.4-5.0); Sodium 134 mmol/L (137-145)
[2022-04-06] MEDS: FLUTICASONE/SALMETEROL 115-21 MCG INHALER 1 PUFF 2 PUFF INHALATION ×2 (09:26→20:02)
[2022-04-06 09:29] LABS: Glucose Point of Care 119 mg/dl (65-105)
[2022-04-06] MEDS: CLOPIDOGREL BISULFATE 75 MG TABLET PO (09:39)
[2022-04-06] MEDS: TAMSULOSIN HCL 0.4 MG CAPSULE PO (09:39)
[2022-04-06] MEDS: ONDANSETRON INJ 4 MG/2 ML VIAL IV PUSH (09:39)
[2022-04-06] MEDS: FUROSEMIDE 40 MG TABLET PO (09:40)
[2022-04-06] MEDS: EMPAGLIFLOZIN 10 MG TABLET BY MOUTH (09:40)
[2022-04-06] MEDS: POTASSIUM CHLORIDE 20 MEQ TABLET PO (09:40)
[2022-04-06] MEDS: LOSARTAN POTASSIUM 100 MG TABLET PO (09:40)
[2022-04-06] MEDS: CITALOPRAM HYDROBROMIDE 20 MG TABLET 40 MG PO (09:40)
[2022-04-06] MEDS: MULTIVIT/MIN/PREN/FOL AC/IRON TABLET 1 TAB PO (09:40)
[2022-04-06] MEDS: carvediloL 25 MG TABLET PO ×2 (09:40→17:03)
[2022-04-06] MEDS: TOLNAFTATE 1% POWDER 45 GM BTL 1 APPLIC TOPICAL ×2 (09:42→20:18)
[2022-04-06 11:46] LABS: Glucose Point of Care 124 mg/dl (65-105)
--- NOTE | 2022-04-06 13:45 | WPDGIPROGNO ---
Progress Note: A&P Assessment and Plan (1) Gallstones: Code(s): K80.20 - Calculus of gallbladder without cholecystitis without obstruction Status: Acute Assessment and Plan: Call stones identified on imaging. At admitted with right upper quadrant pain. HIDA scan risk is nonvisualization of the gallbladder suggest he may have Had cholecystitis. Surgical opinion may be prudent at this point. (2) Transaminitis: Code(s): R74.01 - Elevation of levels of liver transaminase levels Status: Acute Assessment and Plan: Elevated transaminases may be related to gallbladder disease. But somewhat suspicious for underlying occult liver disease. SGOT somewhat higher than SGPT raises the question of alcoholic liver disease. Plan for continued follow-up of these. Hepatitis serologies currently are negative. (3) Hepatomegaly: Code(s): R16.0 - Hepatomegaly, not elsewhere classified Status: Acute Assessment and Plan: Patient has enlarged liver on exam suggesting underlying liver disease. Etiology remains unclear but suspicious for possible alcoholic liver disease this cannot be confirmed presently. SGOT significantly more than SGPT raises the suspicion. Continue to follow LFTs and treat conservatively for now. (4) Chronic anemia: Code(s): D64.9 - Anemia, unspecified Status: Chronic (5) COPD exacerbation: Code(s): J44.1 - Chronic obstructive pulmonary disease with (acute) exacerbation Status: Acute Subjective Date/time seen: 04/06/22 13:45 Patient alert comfortable this morning. Previous right-sided abdominal pain has improved. Patient feels much better. Tolerating diet. He is relatively poor historian. He has no recent drinking history but may have had some drinking in the past. Review of Systems Review of Systems: Review of systems noncontributory. Exam Narrative: Physical exam reveals patient be alert. Vital signs stable. HEENT exam unremarkable. Patient anicteric. Lungs are clear. Heart without murmur. Abdomen is obese soft nontender liver span 2-3 cm below the right costal margin. Objective Data Vital Signs Vital Signs: Vital Signs - 24 hr 04/05/22 14:00 04/05/22 14:05 04/05/22 14:15 Temperature 97.4 F L Pulse Rate 80 80 78 Respiratory Rate 18 18 18 Blood Pressure 128/67 128/44 L 128/78 Pulse Oximetry 92 94 93 Oxygen Delivery Oxygen Flow Rate Fraction of Inspired Oxygen 04/05/22 16:50 04/05/22 16:00 04/05/22 16:35 Temperature 98.2 F Pulse Rate 81 73 71 Respiratory Rate 18 20 Blood Pressure 145/48 H Pulse Oximetry 96 Oxygen Delivery Oxygen Flow Rate Fraction of Inspired Oxygen 04/05/22 16:43 04/05/22 17:13 04/05/22 20:00 Temperature 98.2 F Pulse Rate 74 73 Respiratory Rate 20 22 H 18 Blood Pressure 128/48 L Pulse Oximetry 87 L 91 Oxygen Delivery Room Air Oxygen Flow Rate Fraction of Inspired Oxygen 04/05/22 20:00 04/05/22 20:32 04/05/22 20:32 Temperature 98.2 F 98.2 F 98.2 F Pulse Rate 73 84 87 Respiratory Rate 18 18 18 Blood Pressure 128/48 L 137/66 113/71 Pulse Oximetry 90 95 93 Oxygen Delivery Oxygen Flow Rate Fraction of Inspired Oxygen 04/05/22 20:00 04/05/22 21:23 04/05/22 21:44 Temperature Pulse Rate 87 73 70 Respiratory Rate 18 18 18 Blood Pressure Pulse Oximetry 93 Oxygen Delivery Nasal Cannula Oxygen Flow Rate 2 Fraction of Inspired Oxygen 24 04/06/22 00:00 04/06/22 04:00 04/06/22 00:10 Temperature 98.4 F 98.2 F Pulse Rate 74 70 78 Respiratory Rate 18 20 18 Blood Pressure 126/48 L 142/53 H Pulse Oximetry 92 95 Oxygen Delivery Oxygen Flow Rate Fraction of Inspired Oxygen 04/06/22 00:35 04/06/22 04:08 04/06/22 04:24 Temperature Pulse Rate 81 82 79 Respiratory Rate 18 18 18 Blood Pressure Pulse Oximetry Oxygen Delivery Oxygen Flow Rate Fraction of Inspired Oxygen
--- NOTE | 2022-04-06 14:45 | PM.IMPN ---
Progress Note: A&P Assessment and Plan (1) Abdominal pain: Qualifiers: Abdominal location: right upper quadrant Qualified Code(s): R10.11 - Right upper quadrant pain Code(s): R10.9 - Unspecified abdominal pain Status: Acute Assessment and Plan: Patient presented to the ED with c/o abdominal pain. LFTs noted to be elevated. CT Abd/pelvis demonstrates heptomegaly. GI consulted and appreciate recommendations. Abd US demonstrates diffuse fatty infiltrates and cholelithiasis Continue analgesics PRN (2) Gallstones: Code(s): K80.20 - Calculus of gallbladder without cholecystitis without obstruction Status: Acute Assessment and Plan: US notable for cholelithiasis. Patient has persistent RUQ pain. HIDA scan shows nonvisualization of gallbladder suggested had cholecystitis. Consult general surgery. PRN analgesics. Monitor oral food intake. Low fat diet. (3) Hepatomegaly: Code(s): R16.0 - Hepatomegaly, not elsewhere classified Status: Acute Assessment and Plan: CT abd/pelvis demonstrates hepatomegaly. US suggests diffuse fatty liver disease. He reports no longer drinking whiskey. hepatitis panel negative. BMI 32. 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 Recommend weight loss, diet modifications, and alcohol avoidance. (4) Transaminitis: Code(s): R74.01 - Elevation of levels of liver transaminase levels Status: Acute Assessment and Plan: LFTs elevated on admission as above. 04/04/22 AST 291, ALT 55, Alk Phos 191, Tbili 0.5 - slightly increased from yesterday. Mild RUQ pain on exam. Trend LFTs and management as above. Hepatitis panel negative Avoid hepatotoxic medications. 04/05 - minimally changed LFTs. appreciate GI recommendations. 04/06 - unchanged. Secondary to hepatic steatosis versus gallstones. Trend labs. (5) Generalized weakness: Code(s): R53.1 - Weakness Status: Acute Assessment and Plan: Secondary to anorexia, acute abd pain, weight loss. Consult PT/OT TSH within normal limits B12 and folate within normal limits BUN/creatinine at baseline. (6) COPD exacerbation: Code(s): J44.1 - Chronic obstructive pulmonary disease with (acute) exacerbation Status: Acute Assessment and Plan: Acute exacerbation of chronic disease. 04/05/22 Wheezing noted on exam. CXR with atelectasis Continue Advair. Continue scheduled duonebs Q4 hours Wheezing improved on exam. No s/s bacterial infection. Hold antibiotics. (7) Chronic respiratory failure with hypoxia, on home oxygen therapy: Code(s): J96.11 - Chronic respiratory failure with hypoxia; Z99.81 - Dependence on supplemental oxygen Status: Chronic Assessment and Plan: H/O COPD on chronic home O2 as above. (8) Type 2 diabetes mellitus: Qualifiers: Diabetes mellitus middle or intermediate school principal insulin use: without middle or intermediate school principal use Diabetes mellitus complication status: without complication Qualified Code(s): E11.9 - Type 2 diabetes mellitus without complications Code(s): E11.9 - Type 2 diabetes mellitus without complications Status: Chronic Assessment and Plan: Chronic, stable. Non-insulin dependent diabetes A1c 5.5% Accu-checks AC/HS with sliding scale insulin Hold metformin while inpatient and LFTs elevated Continue Jardiance Stable. (9) Chronic anemia: Code(s): D64.9 - Anemia, unspecified Status: Chronic Assessment and Plan: Chronic, stable. H/H 9.6/31% appears at baseline B12/folate within normal limits iron panel- serum iron 23, TIBC 262, saturation 9% - continue MVI with iron (10) Chronic kidney disease, stage 3: Qualifiers: Chronic kidney disease stage 3 subtype: stage 3b (GFR 30-44) Qualified Code(s): N18.32 - Chronic kidney disease, stage 3b Code(s): N18.30 - Chronic kidney disease, stage 3 unspecified Status: Chronic
[2022-04-06 16:42] LABS: Glucose Point of Care 103 mg/dl (65-105)
--- NOTE | 2022-04-06 17:16 | PM.CNGS ---
Assessment and Plan Assessment and plan (1) Abdominal pain: Qualifiers: Abdominal location: right upper quadrant Qualified Code(s): R10.11 - Right upper quadrant pain Code(s): R10.9 - Unspecified abdominal pain Status: Acute Assessment and Plan: per the patient and his this has resolved since admission. His feels the pain was in a line across the suprapubic area. The patient describes the pain as being in the right groin or right lower quadrant. Regardless, the patient is eating without difficulty at this time. Admitting symptoms have resolved. (2) Transaminitis: Code(s): R74.01 - Elevation of levels of liver transaminase levels Status: Acute Assessment and Plan: Liver enzymes have been mildly elevated and have stayed in this range. Patient likely does have a nonalcoholic fatty liver disease and this is a good reason to have some mild elevation of the liver enzymes. I do not feel there is enough evidence by patient symptoms or by imaging to suggest these are elevated due to chronic cholecystitis and gallstones. (3) Gallstones: Code(s): K80.20 - Calculus of gallbladder without cholecystitis without obstruction Status: Acute Assessment and Plan: Ultrasound really only showed a contracted gallbladder and possibly a gallstone. The patient clearly has hepatic dysfunction by HIDA scan and neither the ultrasound or the HIDA scan can be said to reliably indicate chronic or acute cholecystitis. The abnormal HIDA finding of hepatocellular dysfunction would go along with NAFLD which also could be a cause of elevated liver enzymes. Patient is a very high risk for surgery. Unless there was clear-cut evidence of either acute cholecystitis or persistent symptomatic chronic cholecystitis, I would not recommend surgery. From my perspective, he can be discharged. We will sign off. Thank you for asking me to see the patient in consultation. If I can be of any other assistance please let me know. History of Present Illness Consult details Consult date: 04/06/22 Reason for consult: abdominal pain Requesting physician: Burt Del Real MD Narrative: Patient is an 86-year-old man who has severe COPD and is on home oxygen. He also takes Plavix for a previous coronary stent. He came to the emergency room with mostly complaints of abdominal problems. There was also question of some shortness breath. His abdominal complaints were somewhat vague but included poor appetite, nausea and malaise. When I saw the patient today, his describes that his pain was across the lower abdomen. The patient describes that he was having pain in the right groin or right lower quadrant. When he came to the emergency room on 04/03/2022 he did have some elevated liver function tests. He also had a CT scan of the abdomen which did not show the gallbladder but did show an enlarged liver. Since being admitted, the patient reports his pain has completely gone away. He is currently on a heart healthy diabetic diet and 2 days ago took in 1300 cc orally. Yesterday he took in 1400 cc orally. He did have additional testing including an ultrasound of his gallbladder. The gallbladder was contracted and poorly evaluated. There was felt to be probably a small shadowing gallstone. His enlarged liver was felt most likely to be due to NAFLD. Today the patient had an hepatobiliary scan. The HIDA scan showed impaired hepatic function with poor clearance of the radioisotope. Additionally, the patient became agitated after 30 minutes of the procedure and discontinue it prematurely after 15 more minutes. the gallbladder was not visualized during the study but the report also indicates that that could easily be a false positive due to diffuse hepatocellular dysfunction. Patient had hepatitis panel which was negative. Patient does take Plavix and this has been continued during this admission. He is seen now in cons
[2022-04-06 21:13] LABS: Glucose Point of Care 97 mg/dl (65-105)
[2022-04-07] VITALS (8 sets, daily range): BP systolic 132–136; BP diastolic 49–57; PULSE 74–84; RESP 18–20; TEMP 36.2–36.3; O2SAT 90–93
[2022-04-07] MEDS: ALBUTEROL SULFATE NEB 2.5 MG/3 ML INH INHALATION ×3 (00:50→08:24)
[2022-04-07] MEDS: IPRATROPIUM BR 0.02% INH SOLN 0.5 MG/2.5 ML VIAL INHALATION ×3 (00:50→08:24)
[2022-04-07 05:57] LABS: Mean Corpuscular HGB Conc 30.3 g/dl (32-36); Mean Corpuscular Hemoglobin 27.5 pg (26-34); Mean Corpuscular Volume 90.7 fl (80-100); Mean Platelet Volume 10.3 fl (7.4-10.4); Platelet Count Result 264 k/mm3 (150-375); Red Blood Count 3.64 M/mm3 (4.6-6.20); Red Cell Distribution Width 15.9 % (11.5-14.5); White Blood Count 9.6 K/mm3 (4.5-10.0)
[2022-04-07 06:12] LABS: Alanine Aminotransferase 57 U/L (6-50); Albumin Level 3.2 g/dL (3.5-5.1); Alkaline Phosphatase 177 U/L (38-126); Anion Gap 1 mmol/L (8-16); Aspartate Amino Transferase 239 U/L (17-59); Bilirubin,Total 0.5 mg/dL (0.2-1.3); Blood Urea Nitrogen 33 mg/dL (9-20); Calcium 9.6 mg/dL (8.4-10.2); Carbon Dioxide 37 mmol/L (22-30); Chloride 100 mmol/L (98-107); Estimated CRCL calculation 37 ml/min; Estimated Glomerular Filt Rate 45; Glucose 105 mg/dL (65-110); Potassium 4.1 mmol/L (3.4-5.0); Sodium 138 mmol/L (137-145)
[2022-04-07 07:54] LABS: Glucose Point of Care 104 mg/dl (65-105)
--- NOTE | 2022-04-07 08:18 | WPDGIPROGNO ---
Progress Note: A&P Assessment and Plan (1) Hepatomegaly: Code(s): R16.0 - Hepatomegaly, not elsewhere classified Status: Acute Assessment and Plan: Hepatomegaly identified. No longer with abdominal pain. Suspected the patient has fatty liver ,k steatosis appears to account for this. (2) Transaminitis: Code(s): R74.01 - Elevation of levels of liver transaminase levels Status: Acute Assessment and Plan: Elevated LFTs likely on the basis of steatohepatitis. Currently without pain. Liver transaminases appears stable. Agree with early discharge. Low-fat diet encouraged. Okay with discharge from GI perspective. (3) Gallstones: Code(s): K80.20 - Calculus of gallbladder without cholecystitis without obstruction Status: Acute Assessment and Plan: Surgery Services evaluated for gallstones. HIDA scan with nonvisualization of the gallbladder. Likely from intrahepatic liver disease. (4) Abdominal pain: Qualifiers: Abdominal location: right upper quadrant Qualified Code(s): R10.11 - Right upper quadrant pain Code(s): R10.9 - Unspecified abdominal pain Status: Acute Subjective Date/time seen: 04/07/22 08:18 Patient alert comfortable this morning. Denies abdominal pain. Review of Systems Review of Systems: Review of systems noncontributory. Exam Narrative: Physical exam reveals patient to be alert comfortable at rest he is anicteric. Lungs are clear. Heart without murmur. Abdomen bowel sounds present soft nontender. Objective Data Vital Signs Vital Signs: Vital Signs - 24 hr 04/06/22 09:29 04/06/22 09:30 04/06/22 09:50 Temperature Pulse Rate 78 78 Respiratory Rate 20 20 Blood Pressure Pulse Oximetry 91 Oxygen Delivery Room Air 04/06/22 09:00 04/06/22 09:10 04/06/22 10:37 Temperature 97 F L Pulse Rate 70 70 Respiratory Rate 18 18 Blood Pressure 111/37 L 124/47 L Pulse Oximetry 96 95 Oxygen Delivery Room Air 04/06/22 12:00 04/06/22 12:32 04/06/22 12:42 Temperature 97.5 F L Pulse Rate 70 68 72 Respiratory Rate 18 20 20 Blood Pressure 130/42 L Pulse Oximetry 94 Oxygen Delivery 04/06/22 14:24 04/06/22 16:00 04/06/22 16:42 Temperature 97.5 F L Pulse Rate 76 68 Respiratory Rate 18 18 Blood Pressure 133/48 L Pulse Oximetry 94 Oxygen Delivery Room Air 04/06/22 16:57 04/06/22 19:58 04/06/22 19:58 Temperature Pulse Rate 80 65 65 Respiratory Rate 18 18 18 Blood Pressure Pulse Oximetry 91 Oxygen Delivery Room Air 04/06/22 20:15 04/06/22 20:00 04/06/22 20:00 Temperature 97.0 F L 97.0 F L Pulse Rate 79 67 67 Respiratory Rate 18 18 18 Blood Pressure 122/49 L 122/49 L Pulse Oximetry 91 91 Oxygen Delivery 04/06/22 21:02 04/06/22 21:02 04/06/22 21:02 Temperature 97.0 F L 97.0 F L 97 F L Pulse Rate 67 65 52 L Respiratory Rate 18 18 18 Blood Pressure 122/49 L 1198/49 H 138/96 H Pulse Oximetry 91 94 92 Oxygen Delivery 04/07/22 00:00 04/07/22 00:50 04/07/22 00:50 Temperature 97.1 F L Pulse Rate 80 76 76 Respiratory Rate 18 20 20 Blood Pressure 132/49 L Pulse Oximetry 90 91 Oxygen Delivery Room Air 04/07/22 01:05 04/07/22 03:57 04/07/22 05:05 Temperature 97.4 F L Pulse Rate 84 74 79 Respiratory Rate 20 20 20 Blood Pressure 133/53 L Pulse Oximetry 91 Oxygen Delivery Intake/Output Intake/Output: Intake & Output 04/04/22 04/05/22 04/06/22 04/07/22 23:59 23:59 23:59 23:59 Intake Total 1300 1398 1320 120 Balance 1300 1398 1320 120 Meds/Results Medications: Active Medications Generic Name Dose Route Start Last Admin Trade Name Freq PRN Reason Stop Dose Admin Acetaminophen 650 mg 04/03/22 14:08 Acetaminophen 325 Mg Tablet PO Q4H PRN Mild Pain (1-3) or Fever Hydrocodone Bitart/Acetaminophen 1 tab 04/04/22 00:53 Hydrocodone/Acetaminophen (*Crx) 7.5-325 Mg Tablet PO
[2022-04-07] MEDS: FLUTICASONE/SALMETEROL 115-21 MCG INHALER 1 PUFF 2 PUFF INHALATION (08:28)
[2022-04-07] MEDS: POTASSIUM CHLORIDE 20 MEQ TABLET PO (09:04)
[2022-04-07] MEDS: FUROSEMIDE 40 MG TABLET PO (09:04)
[2022-04-07] MEDS: CITALOPRAM HYDROBROMIDE 20 MG TABLET 40 MG PO (09:04)
[2022-04-07] MEDS: carvediloL 25 MG TABLET PO (09:04)
[2022-04-07] MEDS: EMPAGLIFLOZIN 10 MG TABLET BY MOUTH (09:04)
[2022-04-07] MEDS: MULTIVIT/MIN/PREN/FOL AC/IRON TABLET 1 TAB PO (09:05)
[2022-04-07] MEDS: TAMSULOSIN HCL 0.4 MG CAPSULE PO (09:05)
[2022-04-07] MEDS: LOSARTAN POTASSIUM 100 MG TABLET PO (09:05)
[2022-04-07] MEDS: TOLNAFTATE 1% POWDER 45 GM BTL 1 APPLIC TOPICAL (09:05)
--- NOTE | 2022-04-07 10:30 | PM.DS ---
DS: Admitting Diagnosis Discharge Date 04/07/2022 1031 Admitting Diagnosis Transaminitis Generalized weakness Abdominal pain Chronic respiratory failure with hypoxia, on home oxygen therapy Type 2 diabetes mellitus Chronic anemia Chronic kidney disease, stage 3 Essential hypertension DS: Discharge Diagnosis Discharge Diagnosis (1) Abdominal pain: Qualifiers: Abdominal location: right upper quadrant Qualified Code(s): R10.11 - Right upper quadrant pain Code(s): R10.9 - Unspecified abdominal pain Status: Acute Assessment and Plan: Patient presented to the ED with c/o abdominal pain. LFTs noted to be elevated. CT Abd/pelvis demonstrates heptomegaly. GI consulted and appreciate recommendations. Abd US demonstrates diffuse fatty infiltrates and cholelithiasis Continued analgesics PRN (2) Gallstones: Code(s): K80.20 - Calculus of gallbladder without cholecystitis without obstruction Status: Acute Assessment and Plan: US notable for cholelithiasis. Patient noted to have persistent RUQ pain. HIDA scan shows nonvisualization of gallbladder suggesting cholecystitis. Consult general surgery. PRN analgesics. Monitor oral food intake. Low fat diet. (3) Hepatomegaly: Code(s): R16.0 - Hepatomegaly, not elsewhere classified Status: Acute Assessment and Plan: CT abd/pelvis demonstrates hepatomegaly. US suggests diffuse fatty liver disease. He reports no longer drinking whiskey. hepatitis panel negative. BMI 32. 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 Recommend weight loss, diet modifications, and alcohol avoidance. (4) Transaminitis: Code(s): R74.01 - Elevation of levels of liver transaminase levels Status: Acute Assessment and Plan: LFTs elevated on admission as above. 04/04/22 AST 291, ALT 55, Alk Phos 191, Tbili 0.5. Mild RUQ pain on exam. Trend LFTs and management as above. Hepatitis panel negative Avoid hepatotoxic medications. 04/05 - minimally changed LFTs. appreciate GI recommendations. 04/06 - unchanged. Secondary to hepatic steatosis (5) Generalized weakness: Code(s): R53.1 - Weakness Status: Acute Assessment and Plan: Secondary to anorexia, acute abd pain, weight loss. Consult PT/OT TSH within normal limits B12 and folate within normal limits BUN/creatinine at baseline. (6) COPD exacerbation: Code(s): J44.1 - Chronic obstructive pulmonary disease with (acute) exacerbation Status: Acute Assessment and Plan: Acute exacerbation of chronic disease. 04/05/22 Wheezing noted on exam. CXR with atelectasis Continue Advair. Continue scheduled duonebs Q4 hours Wheezing improved on exam. No s/s bacterial infection. Hold antibiotics. (7) Chronic respiratory failure with hypoxia, on home oxygen therapy: Code(s): J96.11 - Chronic respiratory failure with hypoxia; Z99.81 - Dependence on supplemental oxygen Status: Chronic Assessment and Plan: H/O COPD on chronic home O2 as above. (8) Type 2 diabetes mellitus: Qualifiers: Diabetes mellitus complication status: without complication Diabetes mellitus usp insulin use: without terminal superintendent use Qualified Code(s): E11.9 - Type 2 diabetes mellitus without complications Code(s): E11.9 - Type 2 diabetes mellitus without complications Status: Chronic Assessment and Plan: Chronic, stable. Non-insulin dependent diabetes A1c 5.5% Accu-checks AC/HS with sliding scale insulin Hold metformin while inpatient and LFTs elevated Continued Jardiance Stable. (9) Chronic anemia: Code(s): D64.9 - Anemia, unspecified Status: Chronic Assessment and Plan: Chronic, stable. H/H 9.6/31% appears at baseline B12/folate within normal limits iron panel- serum iron 23, TIBC 262, saturation 9% - continued MVI with iron (10) Chronic kidney disease, stage
[2022-04-07 11:57] LABS: Glucose Point of Care 100 mg/dl (65-105)
== END 2022-04-07 12:50 | disposition home health service (06) ==
LOC: ANHED 14:07 → ANH2MED 04-04 18:02
PROVIDERS: Nurse Practitioner Family; Physician Assistant; Admitting Provider Chiropractor; Emergency Provider Family Medicine; PCP Family Medicine; Visit Provider Family Medicine
DX: K80.20 Calculus of gallbladder without cholecystitis without obstruction (principal); R16.0 Hepatomegaly, not elsewhere classified; R74.01 Elevation of levels of liver transaminase levels; R53.1 Weakness; J44.1 Chronic obstructive pulmonary disease with (acute) exacerbation; J96.11 Chronic respiratory failure with hypoxia; E11.22 Type 2 diabetes mellitus with diabetic chronic kidney disease; I13.0 Hypertensive heart and chronic kidney disease with heart failure and stage 1 through stage 4 chronic kidney disease, or unspecified chronic kidney disease; I50.32 Chronic diastolic (congestive) heart failure; N18.32 Chronic kidney disease, stage 3b; D63.1 Anemia in chronic kidney disease; I25.10 Atherosclerotic heart disease of native coronary artery without angina pectoris; Z95.5 Presence of coronary angioplasty implant and graft; Z99.81 Dependence on supplemental oxygen; Z79.899 Other long term (current) drug therapy; R26.2 Difficulty in walking, not elsewhere classified; R63.0 Anorexia; Z68.32 Body mass index [BMI] 32.0-32.9, adult; K21.9 Gastro-esophageal reflux disease without esophagitis; R19.7 Diarrhea, unspecified; R94.31 Abnormal electrocardiogram [ECG] [EKG]; I89.8 Other specified noninfective disorders of lymphatic vessels and lymph nodes; N40.0 Benign prostatic hyperplasia without lower urinary tract symptoms; I25.2 Old myocardial infarction; F10.90 Alcohol use, unspecified, uncomplicated; Y90.0 Blood alcohol level of less than 20 mg/100 ml; Z87.891 Personal history of nicotine dependence; Z79.51 Long term (current) use of inhaled steroids; Z79.02 Long term (current) use of antithrombotics/antiplatelets; Z79.891 Long term (current) use of opiate analgesic; Z79.84 Long term (current) use of oral hypoglycemic drugs; Z83.3 Family history of diabetes mellitus; Z82.49 Family history of ischemic heart disease and other diseases of the circulatory system
CPT/HCPCS: 36415; 71046; 74176; 76705; 78226; 80053; 80074; 80307; 81001; 82140; 82550; 82607; 82746; 82948; 83036; 83540; 83550; 83690; 83735; 83880; 84443; 85025; 85027; 85610; 85730; 86140; 87636; 93005; 94640; 96374; 97161; 97165; 99285; A9270; A9537; G0378; J2405